=== PATIENT | male | born 1970 | race African-American/Black ===

== ENCOUNTER 2017-03-21 13:39 | Emergency (ER) | payer BC ==
[~2017-03-21] VITALS: Ht 182.9 cm; Wt 68.2 kg
[2017-03-21 13:42] VITALS: BP 126/82
[2017-03-21] MEDS ORDERED: CEFTRIAXONE 250 MG ONE (14:52)
[2017-03-21] MEDS ORDERED: AZITHROMYCIN 500 MG TABLET ONE (14:52)
[2017-03-21] MEDS ORDERED: CEFTRIAXONE 250 MG IM ONE (15:00)
[2017-03-21] MEDS ORDERED: AZITHROMYCIN 500 MG TABLET PO ONE (15:00)
[2017-03-21] MEDS ORDERED: BICILLIN-LA 2,400,000 UNITS/4 ML IM ONE (15:30)
== END 2017-03-21 16:11 | disposition home or self-care (01) ==
LOC: ED 14:46
DX: A64 Unspecified sexually transmitted disease (principal); F12.10 Cannabis abuse, uncomplicated
CPT/HCPCS: 36415; 81003; 86592; 87491; 87591; 96372; 99284; J0561; J0696

== ENCOUNTER 2017-03-23 07:13 | Emergency (ER) | payer BC ==
[~2017-03-23] VITALS: Ht 182.9 cm; Wt 67.9 kg
[2017-03-23 07:17] VITALS: BP 147/96
== END 2017-03-23 08:04 | disposition home or self-care (01) ==
LOC: ED 07:59
DX: A51.0 Primary genital syphilis (principal); Z20.2 Contact with and (suspected) exposure to infections with a predominantly sexual mode of transmission
CPT/HCPCS: 99281

== ENCOUNTER 2017-03-26 00:33 | Emergency (ER) | payer BC ==
[~2017-03-26] VITALS: Ht 182.9 cm; Wt 66.7 kg
[2017-03-26 00:34] VITALS: BP 147/91
== END 2017-03-26 01:18 | disposition home or self-care (01) ==
LOC: ED 01:12
DX: A57 Chancroid (principal); H10.233 Serous conjunctivitis, except viral, bilateral
CPT/HCPCS: 99283